=== PATIENT | male | born 1975 | race Two or more races ===

== ENCOUNTER 2019-11-22 10:07 | Emergency (ER) | payer OTHER ==
[~2019-11-22] VITALS: Ht 175.3 cm; Wt 83.9 kg
[2019-11-22] MEDS ORDERED: LIPITOR 10MG (10:19)
[2019-11-22] MEDS ORDERED: KETO10TA2 PO (13:03)
== END 2019-11-22 13:12 | disposition home or self-care (01) ==
LOC: ER 10:07
DX: R10.32 Left lower quadrant pain (principal)

== ENCOUNTER → 2019-11-25 09:39 | Outpatient (CLI) | payer OTHER ==
[~2019-11-25 09:39] MED LIST: KETO10TA2 PO; LIPITOR 10MG
== END | disposition home or self-care (01) ==
LOC: LAB 09:39
PROVIDERS: ATTEND Urology
DX: N20.1 Calculus of ureter (principal)

== ENCOUNTER 2019-11-25 09:57 | Outpatient (CLI) | payer OTHER | END 2019-11-25 09:58 | disposition home or self-care (01) | LOC: RAD 09:57 | PROVIDERS: ATTEND Urology | DX: N20.1 Calculus of ureter (principal) ==